=== PATIENT | female | born 1935 | race Caucasian/White ===

== ENCOUNTER 2017-09-25 14:00 | Outpatient (CLI) | payer MEDICARE, BC | END 2017-09-25 14:01 | disposition critical access hospital (66) | LOC: EMS 14:00 | PROVIDERS: ATTEND Surgery | DX: S09.90XA Unspecified injury of head, initial encounter (principal); W01.198A Fall on same level from slipping, tripping and stumbling with subsequent striking against other object, initial encounter; Y92.481 Parking lot as the place of occurrence of the external cause | CPT/HCPCS: A0425; A0429 ==

== ENCOUNTER 2017-09-25 14:15 | Emergency (ER) | payer MEDICARE, BC ==
--- NOTE | 2017-09-25 14:30 | ED Physician Documentation ---
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 denies: Neck pain Neurologic: reports: Headache, Head injury Endocrine: reports: Easy bruising / bleeding Immunocompromised: denies: Immunocompromised PD PAST MEDICAL HISTORY - Present Medications Home Medications: Ambulatory Orders Medication Instructions Recorded Confirmed Amiodarone [Pacerone] 200 mg PO DAILY 09/25/17 Apixaban [Eliquis] BID 09/25/17 Atorvastatin [Lipitor] 10 DAILY 09/25/17 Clopidogrel [Plavix] DAILY 09/25/17 Levothyroxine [Synthroid] 100 mcg DAILY 09/25/17 Metoprolol Succinate 75 mg TID 09/25/17 - Allergies Allergies/Adverse Reactions: Allergies Allergy/AdvReac Type Severity Reaction Status Date / Time No Known Drug Allergies Allergy Verified 09/25/17 14:22 PD ED PE NORMAL - Vitals Vital signs reviewed: Yes - HEENT HEENT: Ears normal (no drainage or salas sign). No: Atraumatic (abrasiosn to face, no bony TTP or stepoff, EOMI, no hyphema, nl bite) - Neck Neck: No bony TTP - Cardiac Cardiac: RRR - Respiratory Respiratory: Clear bilaterally - Abdomen Abdomen: Soft, Non tender - Derm Derm: Other (abrasions to face and less so knees) - Extremities Extremities: Other (L wrist s deformity but TTP, MSV intact, red zoltan abrasions but no laxity, minimal TTP able to range) - Neuro Neuro: Alert and oriented X 3, No motor deficit, No sensory deficit Results - Vitals Vitals: Vital Signs - 24 hr 09/25/17 14:18 Temperature 37.2 C Heart Rate 85 Respiratory 17 Rate Blood Pressure 159/94 H O2 Saturation 98 Oxygen O2 Source Room air - Rads (name of study) CTH Radiology: See rad report (no fx or bleed) CTCS Radiology: See rad report (no fx or sublux, possible irreg 7 mm opacity apex L lung consider non emergent CT (recent PPM could be related)) wrist Radiology: See rad report (no fx simple bone cyst) PD MEDICAL DECISION MAKING - ED course ED course: [employer] PPM placed in Dec and stents done 3 weeks ago Departure - Departure Disposition: Home, Self Care Clinical Impression: Head injury Qualifiers: Encounter type: initial encounter Qualified Code(s): S09.90XA - Unspecified injury of head, initial encounter Facial abrasion Qualifiers: Encounter type: initial encounter Qualified Code(s): S00.81XA - Abrasion of other part of head, initial encounter Left wrist sprain Qualifiers: Encounter type: initial encounter Qualified Code(s): S63.502A - Unspecified sprain of left wrist, initial encounter Condition: Good Instructions: ED Splint Care Velcro, ED Head Injury Closed Sleep Mon, ED Sprain Wrist Follow-Up: VANESSA CASTELLANOS MD [Primary Care Provider] - (about the abnormal spot in the left lung) Comments: Thankfully the CT scans do not show any skull or spine fracture nor any bleeding on your brain. The radiologist did see a small irregular opacity in the top of your left lung - this could be related to your recent pacemaker - but the radiologist recommends you follow up with your PMD to get a CT or your chest to further evaluate Because you are on blood thinners it is possible though unlikely for you to have a delayed bleed in your brain. Please stay with a responsible adult who can watch over you carefully and bring your back to the ER if you are worse in any way (see attached head injury precautions) Wear the brace on your wrist as needed for comfort
[2017-09-25] MEDS ORDERED: TETANUS/DIPHTHERIA/PERTUSSIS 0.5 ML SYRINGE IM ONE (14:31)
--- NOTE | 2017-09-25 16:44 | CT Report ---
EXAM: CT HEAD EXAM DATE: 09/25/2017 04:25 PM. CLINICAL HISTORY: Fall. Head injury. On eliquis. COMPARISON: None. TECHNIQUE: Multiaxial CT images were obtained from the foramen magnum to the vertex. Reformats: Coron al. IV contrast: None. In accordance with CT protocol optimization, one or more of the following dose reduction techniques w ere utilized for this exam: automated exposure control, adjustment of mA and/or KV based on patient s ize, or use of iterative reconstructive technique. FINDINGS: Parenchyma: No intraparenchymal hemorrhage. No evidence of mass, midline shift, or CT findings of acu te infarction. Fonseca-white differentiation is distinct. Mild chronic microangiopathic white matter faye nges are evident. Extraaxial Spaces: Normal for age. No subdural or epidural collections identified. Ventricles: The ventricles and cortical sulci are prominent, consistent with age-related tissue loss. Sinuses and orbits: Imaged paranasal sinuses, orbits, and mastoids show no significant abnormality. Bones: No evidence of fracture or calvarial defect. Other: None. IMPRESSION: Generalized age-related cortical atrophic changes without evidence of acute intracranial abnormality. [facility] Referring Provider Line: [phone] SITE ID: [id number]
--- NOTE | 2017-09-25 16:58 | CT Report ---
EXAM: CT CERVICAL SPINE WITHOUT CONTRAST DATE: 09/25/2017 04:33 PM. HISTORY: Fall head injury. Abrasion on forehead and nose. On Plavix. Neck pain. COMPARISONS: None. TECHNIQUE: Thin-section axial images were acquired of the cervical spine without contrast. Post-proce ssing: Coronal and sagittal reformats. Other: None. In accordance with CT protocol optimization, one or more of the following dose reduction techniques w ere utilized for this exam: automated exposure control, adjustment of mA and/or KV based on patient s ize, or use of iterative reconstructive technique. FINDINGS: Minimal anterolisthesis at C3-C4, most likely degenerative. Moderate to severe degenerative disk disease at C6-C7 and C7-T1. Otherwise mild degenerative disk disease in the cervical spine. Mod erate diffuse bilateral facet arthropathy. 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 No evidence for acute fracture. No acute soft tissue finding. Biapical scarring. Mild centrilobular and paraseptal emphysema. Small irregular opacity seen in the l eft apex measuring 7 mm, not completely imaged. A routine chest CT could be obtained to further evalu ate. Malignancy not excluded. IMPRESSION: 1. No evidence for acute fracture. 2. Degenerative changes as above. 3. Biapical scarring. Mild centrilobular and paraseptal emphysema. Small irregular opacity seen in th e left apex measuring 7 mm, not completely imaged. A routine chest CT could be obtained to further ev aluate. Malignancy not excluded. [facility] Referring Provider Line: [phone] SITE ID: [id number]
--- NOTE | 2017-09-25 17:04 | XRAY Report ---
EXAM: LEFT WRIST RADIOGRAPHY EXAM DATE: 09/25/2017 04:54 PM. CLINICAL HISTORY: Fall. Injury. Left wrist pain. COMPARISON: None. TECHNIQUE: 3 views. FINDINGS: Bones: No acute traumatic or destructive bone abnormalities. Benign-appearing bone cysts in the scaph oid and lunate. Joints: Degenerative narrowing and sclerosis at the first carpometacarpal joint and scaphomultangular joints. No subluxations. Soft Tissues: Unremarkable. IMPRESSION: 1. No acute bony abnormalities. 2. Osteoarthritis. 3. 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 [facility] Referring Provider Line: [phone] SITE ID: [id number]
[2017-09-25 17:36] VITALS: BP 134/88
== END 2017-09-25 17:53 | disposition home or self-care (01) ==
LOC: ED 14:15
DX: S09.90XA Unspecified injury of head, initial encounter (principal); S00.81XA Abrasion of other part of head, initial encounter; S63.502A Unspecified sprain of left wrist, initial encounter; W01.198A Fall on same level from slipping, tripping and stumbling with subsequent striking against other object, initial encounter; Y92.481 Parking lot as the place of occurrence of the external cause; Z23 Encounter for immunization; Z79.01 Long term (current) use of anticoagulants; Z95.0 Presence of cardiac pacemaker; Z95.5 Presence of coronary angioplasty implant and graft
CPT/HCPCS: 36415; 70450; 72125; 90471; 99283; 99284